=== PATIENT | female | born 1965 | race Caucasian/White ===

== ENCOUNTER → 2017-06-11 15:08 | Outpatient (CLI) | payer BC, SELFPAY ==
--- NOTE | 2017-06-11 15:15 | MM_ITS ---
MM Dig screening mamm BI w/CAD CAD Screening COMPARISON: Digital mammograms 03/11/2016 and follow-up additional views of both breasts to 2016 INDICATION: There is no personal or family history of breast cancer TECHNIQUE: Standard CC and MLO images were obtained. R2 CAD reviewed. FINDINGS: There is a diffusely dense and heterogenic parenchymal pattern lessening the sensitivity of mammography. The findings are fairly symmetrical bilaterally. There is no suspicious lesion in either breast and no suspicious microcalcifications. Ultrasound was performed in both breast which will be described in the ultrasound report. However no additional workup was indicated following ultrasound evaluation. IMPRESSION: Dense and heterogenic parenchymal pattern consistent with diffuse fibrocystic change BI-RADS Category: 1 Negative RECOMMENDED FOLLOW-UP: 1YR - 1 YEAR FOLLOW-UP (A letter has been sent to the patient regarding results of the study.)
--- NOTE | 2017-06-11 15:16 | US_ITS ---
US breast RT complete COMPARISON: Ultrasound right breast 04/10/2016 HISTORY: Follow-up cystic lesions and ductal hyperplasia TECHNIQUE: Ultrasound right breast FINDINGS: There is a diffusely echogenic parenchymal pattern consistent with fibrocystic change. There are 2 small cysts one at the 12:00 position near the nipple the other 2:00 position in the nipple both 4 to 5 mm in size. Is a large benign-appearing cystic lesion 8:00 position in the nipple measuring 0.9 by point for a 0.9 cm. There is additional benign-appearing cystic lesion at the 9:00 and 10:00 positions both less than a centimeter in size. There is moderate ductal hyperplasia noted. There is no suspicious solid lesions seen. IMPRESSION: Basically stable also benign-appearing cyst in a background of fibrocystic change. I feel no additional evaluation is indicated.
--- NOTE | 2017-06-11 15:16 | US_ITS ---
US breast LT complete COMPARISON: Ultrasound left breast to 2016 HISTORY: Follow-up cystic lesions seen on previous ultrasound TECHNIQUE: Ultrasound left breast FINDINGS: There are 2 benign-appearing cystic lesions one at the 12:00 position the other at 3:00 position both somewhat near the nipple. The 12:00 lesion measures 0.7 x 0.8 x 0.4 cm and the 3:00 cystic lesion measures 0.7 x 0.9 x 1.1 cm .There is a hypoechoic but solid lesion at 11:00 position near the nipple measuring 0.7 x 0.6 x 0.5 cm. Again Noted are dilated ducts in the subareolar region. There is a normal-appearing node in the axilla. IMPRESSION: Benign-appearing cystic lesions as noted along with what appears be a small solid lesion likely a fibroadenoma along with mild stable ductal hyperplasia and I feel no additional evaluation is indicated.
== END ==
PROVIDERS: Family Provider Family Medicine; PCP Family Medicine; Visit Provider Family Medicine
DX: R92.8 Other abnormal and inconclusive findings on diagnostic imaging of breast (principal); N60.19 Diffuse cystic mastopathy of unspecified breast
CPT/HCPCS: 76641; 77067

== ENCOUNTER → 2018-06-13 15:21 | Outpatient (CLI) | payer BC, SELFPAY ==
--- NOTE | 2018-06-13 | MM_ITS ---
MM Dig screening mamm BI w/CAD CAD Screening COMPARISON: Digital mammograms with CAD 06/11/2017 and 03/11/2016 INDICATION: There is no personal or family history of breast cancer TECHNIQUE: Standard CC and MLO images were obtained. R2 CAD reviewed. FINDINGS: Again noted is a markedly dense and diffusely heterogenic parenchymal pattern definitely lessening the sensitivity of mammography. The findings are fairly symmetrical bilaterally. There are few benign-appearing microcalcifications in each breast. There is no suspicious lesion and there are no suspicious microcalcifications. IMPRESSION: Stable exam with markedly dense parenchymal pattern and no suspicious lesion seen BI-RADS Category: 2 Benign Finding(s) RECOMMENDED FOLLOW-UP: 1YR - 1 YEAR FOLLOW-UP (A letter has been sent to the patient regarding results of the study.)
== END ==
PROVIDERS: PCP Family Medicine; Visit Provider Family Medicine
DX: N60.19 Diffuse cystic mastopathy of unspecified breast (principal)
CPT/HCPCS: 77067

== ENCOUNTER → 2019-06-16 08:56 | Outpatient (CLI) | payer BC, SELFPAY ==
--- NOTE | 2019-06-16 08:59 | MM_ITS ---
PROCEDURE: MM DIG SCREENING MAMM BI W/CAD Digital Breast Tomosynthesis Included CLINICAL INDICATION: SCREENING There is no personal or family history of breast cancer. COMPARISON: DMDBAV DIG MAMM-DX STEPHANE W/AVWS W/CAD from 04/10/2016 [facility] MM Dig screening mamm BI w/CAD from 06/11/2017 [facility] MM Dig screening mamm BI w/CAD from 06/13/2018 TECHNIQUE: Standard CC and MLO images and 3D Tomosynthesis was obtained. R2 CAD reviewed. FINDINGS: There is a diffusely dense and somewhat heterogenic parenchymal pattern as noted previously. Sulaiman images are most helpful with this type of breast parenchyma and I see no suspicious lesion in either breast. There couple of benign-appearing microcalcifications in each breast. There are no suspicious microcalcifications IMPRESSION: Stable exam with prominent diffuse density bilaterally BI-RAD Category: 2 Benign Finding(s) FOLLOW-UP: 1YR 1 Year Follow-up (A letter has been sent to the patient regarding results of the study.) Dictated by: Dr. Rosendo Montes MD 06/19/2019 11:[address] Rosendo Montes MD in [place] 06/19/2019 11:59
== END ==
PROVIDERS: PCP Family Medicine; Visit Provider Family Medicine
DX: Z12.31 Encounter for screening mammogram for malignant neoplasm of breast (principal)
CPT/HCPCS: 77063; 77067

== ENCOUNTER → 2021-01-24 06:52 | Outpatient (CLI) | payer BC, SELFPAY ==
[2021-01-24 07:54] LABS: Chol/HDL Ratio 2.1 (1-3.5); Cholesterol 154 mg/dl (140-200); HDL Cholesterol 73 mg/dl (40-60); Triglycerides 53 mg/dl (30-150); VLDL Cholesterol 11 mg/dL (0-40)
[2021-01-24 08:05] LABS: Direct LDL Cholesterol 71.58 mg/dL (100-129)
== END ==
PROVIDERS: Visit Provider Family Medicine
DX: E78.5 Hyperlipidemia, unspecified (principal)
CPT/HCPCS: 36415; 80061

== ENCOUNTER → 2021-09-05 09:56 | Outpatient (CLI) | payer BC, SELFPAY | LOC: RT 09:57 | PROVIDERS: PCP Family Medicine; Visit Provider Family Medicine | DX: R01.1 Cardiac murmur, unspecified (principal) | CPT/HCPCS: 93306 ==

== ENCOUNTER → 2022-04-30 12:34 | Outpatient (CLI) | payer BC, SELFPAY ==
--- NOTE | 2022-04-30 12:37 | MM_ITS ---
PROCEDURE INFORMATION: Exam: MG Bilateral Screening 3D Mammography Exam date and time: 04/30/2022 12:50 PM Age: 56 years old Clinical indication: Screening examination TECHNIQUE: Imaging protocol: Bilateral Screening tomosynthesis and 2D mammography including computer-aided detection (CAD) when performed. COMPARISON: 1. MG MM DIG SCREENING MAMM BI W/CAD 06/16/2019 9:08 AM 2. MG [facility] MM Dig screening mamm BI w/CAD 06/13/2018 3:45 PM FINDINGS: MAMMOGRAPHY: Breast composition: The breasts are heterogeneously dense, which may obscure small masses. Mass: None. Architectural distortion: None. Calcifications: No suspicious calcifications. Asymmetric density: None. Skin thickening: None. Axillary adenopathy: None. IMPRESSION: No mammographic evidence of malignancy. Annual screening is recommended unless otherwise clinically indicated. ASSESSMENT: BI-RADS Category 1: Negative
== END ==
PROVIDERS: PCP Family Medicine; Visit Provider Family Medicine
DX: Z12.31 Encounter for screening mammogram for malignant neoplasm of breast (principal)
CPT/HCPCS: 77063; 77067

== ENCOUNTER 2023-05-15 07:20 | Outpatient (CLI) | payer BC, SELFPAY ==
[2023-05-15 08:03] LABS: Alanine Aminotransferase 15 U/L (12-78); Albumin Level 4.6 g/dl (3.5-5.0); Albumin/Globulin Ratio 1.7 (1.1-1.8); Alkaline Phosphatase 110 U/L (38-126); Anion Gap 11.7 mEq/L (5-15); Aspartate Amino Transferase 27 U/L (14-36); Bilirubin,Total 0.5 mg/dl (0.2-1.3); Calcium 9.4 mg/dl (8.4-10.2); Carbon Dioxide 26 mmol/L (22.0-30.0); Chloride 108 mmol/L (98-107); Chol/HDL Ratio 3.5 (1-3.5); Cholesterol 188 mg/dl (140-200); Globulin 2.7 g/dL (1.3-3.2); Glucose 108 mg/dl (74-100); HDL Cholesterol 54 mg/dl (40-60); Potassium 4.7 mmoL/L (3.5-5.1); Sodium 141 mmol/L (136-145); Total Protein,Serum 7.3 g/dl (6.3-8.2); Triglycerides 53 mg/dl (30-150); VLDL Cholesterol 11 mg/dL (0-40)
[2023-05-15 08:07] LABS: Blood Urea Nitrogen 24 mg/dl (7-17)
[2023-05-15 08:08] LABS: Estimated Glomerular Filt Rate 104 ml/min (>60); GFR (African American) 126 ML/MIN (>60)
[2023-05-15 08:14] LABS: Direct LDL Cholesterol 95.11 mg/dL (100-129)
== END 2023-05-15 23:59 ==
LOC: LAB 07:22
PROVIDERS: PCP Family Medicine; Visit Provider Family Medicine
DX: M79.7 Fibromyalgia (principal); Z72.0 Tobacco use; Z79.899 Other long term (current) drug therapy
CPT/HCPCS: 36415; 80053; 80061

== ENCOUNTER 2023-05-28 12:57 | Outpatient (CLI) | payer BC, SELFPAY ==
--- NOTE | 2023-05-28 13:01 | MM_ITS ---
PROCEDURE INFORMATION: Exam: MG Bilateral Screening 3D Mammography Exam date and time: 05/28/2023 1:17 PM Age: 57 years old Clinical indication: Screening. No family history of breast cancer. TECHNIQUE: Imaging protocol: Bilateral Screening tomosynthesis and 2D mammography including computer-aided detection (CAD) when performed. COMPARISON: 1. MG MM DIG SCREENING MAMM BI W/CAD 04/30/2022 12:50 PM 2. MG MM DIG SCREENING MAMM BI W/CAD 06/16/2019 9:08 AM 3. MG [facility] MM Dig screening mamm BI w/CAD 06/13/2018 3:45 PM 4. MG [facility] MM Dig screening mamm BI w/CAD 06/11/2017 3:59 PM FINDINGS: MAMMOGRAPHY: Breast composition: The breasts are heterogeneously dense, which may obscure small masses. Mass: Questionable 0.7 cm mass in the right outer breast anterior to middle 3rd, 3-4 cm from the nipple, probably in the upper breast (CC 27350/23 and MLO 1718/13) and 0.5 cm mass in the left outer breast posterior 3rd, 8 cm from the nipple, probably in the upper breast (CC 1026/6 and MLO 1372/14). Architectural distortion: None. Calcifications: No suspicious calcifications. Asymmetric density: None. Skin thickening: None. Axillary adenopathy: None. IMPRESSION: Patient will be recalled for bilateral diagnostic mammography with spot compression in CC and MLO and bilateral sonography for further evaluation of questionable bilateral masses. ASSESSMENT: BI-RADS Category 0: Incomplete: Need Additional Imaging Evaluation and/or Prior Mammograms for Comparison
--- NOTE | 2023-05-28 13:01 | CT_ITS ---
FINAL REPORT TECHNIQUE: Axial images were obtained from the lung apex to the mid abdomen by computed tomography. Low-dose protocol was utilized. CLINICAL HISTORY: H/O TOBACCO USE smokes 1 ppd for 40 years COMPARISON: None FINDINGS: DOSE: CTDIvol: 2.9 mGy, DLP: 108.38 mGy*cm There is no axillary adenopathy. There is no hilar or mediastinal adenopathy. The heart is proper size. There is no pericardial or pleural effusion. Limited images of the upper abdomen are unremarkable. There is a left midlung nodule on image 46 of series 3 measuring 4 mm, favor to represent a intrafissural lymph node. The lungs are otherwise clear. IMPRESSION: No suspicious nodule identified. 4 mm left midlung nodule, favor intrafissural lymph node. LUNG RADS CATEGORY 2 RECOMMENDATION: 12 month LDCT follow up Reviewed, Interpreted and Dictated by Aleyda Espino MD Transcribed by ASMITA Bolivar Authenticated and . [facility]
== END 2023-05-28 23:59 ==
LOC: RAD 12:58
PROVIDERS: PCP Family Medicine; Visit Provider Family Medicine
DX: N60.19 Diffuse cystic mastopathy of unspecified breast (principal); Z72.0 Tobacco use
CPT/HCPCS: 71271; 77063; 77067

== ENCOUNTER 2023-06-16 14:06 | Outpatient (CLI) | payer BC, SELFPAY ==
--- NOTE | 2023-06-16 14:13 | MM_ITS ---
PROCEDURE INFORMATION: Exam: US Left Breast, Complete US Right Breast, Complete MG Bilateral Diagnostic Breast Tomosynthesis Exam date and time: 06/16/2023 3:38 PM Age: 57 years old Clinical indication: Callback for questionable 0.7 cm right outer anterior breast and 0.5 cm left outer posterior breast mass identified on screening mammogram . 05/28/2023 TECHNIQUE: Imaging protocol: Complete ultrasound of all four quadrants of the left breast and the retroareolar regions, including ultrasound of the axilla when performed. Complete ultrasound of all four quadrants of the right breast and the retroareolar regions, including ultrasound of the axilla when performed. Bilateral Diagnostic tomosynthesis and 2D mammography including computer-aided detection (CAD) when performed. Unilateral or bilateral exam. COMPARISON: BREASTLT US breast LT complete 06/11/2017 3:37 PM FINDINGS: MAMMOGRAPHY: Breast composition: The breast is heterogeneously dense, which may obscure small masses. Breast mammogram findings: There are several bilateral stable mostly obscured masses. The areas of interest described on 05/28/2023 do not demonstrate persistent mass, or distortion on spot compression diagnostic views. No new mass, architectural distortion, or suspicious calcifications have developed to suggest malignancy. No axillary adenopathy. ULTRASOUND: Breast ultrasound findings: Heterogeneously hypoechoic horizontal mostly circumscribed morphologically similar appearing masses are present bilaterally as follows: Right: 0.6 cm 12 o'clock right 3 cm from nipple, 0.3 cm 1 o'clock right 3 cm from the nipple, 0.5 cm 3 o'clock right 3 cm from the nipple, 0.6 cm 6 o'clock right 4 cm from the nipple, 1.1 cm 8 o'clock right 5 cm from the nipple, 0.8 cm 9 o'clock right 7 cm from the nipple, 0.6 cm right 10 o'clock 5 cm from nipple, 0.4 cm right 11 o'clock 5 cm from nipple, 0.5 cm right retroareolar Left: 0.6 cm left 2 o'clock 5 cm from the nipple, 0.3 cm left 4 o'clock 4 cm from the nipple, 0.7 cm left 9 o'clock 2 cm from the nipple, 0.3 cm left 10 o'clock 3 cm from the nipple, 0.4 cm left 12 o'clock 3 cm from the nipple, 0.4 cm left 12 o'clock 2 cm from the nipple, 0.4 cm 3 o'clock periareolar IMPRESSION: Almost innumerable bilateral morphologically similar appearing subcentimeter masses are present as described above without dominant or morphologically suspicious mass. This limits assessment for detection of a small developing malignancy. No mammographic or sonographic evidence of malignancy. Recommend annual screening mammography unless otherwise clinically indicated. ASSESSMENT: BI-RADS category 2: Benign
== END 2023-06-16 23:59 | disposition home or self-care (01) ==
LOC: RAD 14:07
PROVIDERS: PCP Family Medicine; Visit Provider Family Medicine
DX: R92.8 Other abnormal and inconclusive findings on diagnostic imaging of breast (principal)
CPT/HCPCS: 76641; 77062; 77066; G0279

== ENCOUNTER 2023-11-15 17:00 | Outpatient (CLI) | payer BC, SELFPAY ==
--- OUTSIDE RECORDS SUMMARY | 2023-11-15 17:03 | XMS_ITS ---
[facility] Address [address] [place] [id number] Care Team Providers Care Lpn Private Duty Name Role Phone Ramana Hager Primary Care Provider ALLERGIES No Known Allergies REASON FOR VISIT 6 Month Check Up, Needs labs MEDICATIONS Medication SIG (Take, Route, Fr equency, Duration) Notes Start Date End Date Status Savella 50 MG 1 tab(s) orally twice a day Active Sulindac 200 MG 1 tab(s) orally 2 times a day Active VITAL SIGNS Weight 171.6 lbs 11/11/2023 Blood pressure systolic 120 mm Hg 11/11/19 24 Blood pressure diastolic 80 mm Hg 024 Heart Rate 82 /min 11/11/2023 Height 69 in 11/11/2023 BMI 25.34 kg/m2 11/11/2023 Encounters Encounter Location Date Provider Diagnosis [facility] [address] [place] [id number] 11/11/2023 Ramana Hager Fibromyalgia M79.7 ; Abnormal mammogram R92.8 ; Fibrocystic breast disease, unspecified laterality N60.19 and Right hip pain M25.551 ASSESSMENTS Encounter Date Diagnosis Assessment Notes Treatment Notes Treatment Clinical Notes 11/11/2023 Fibromyalgia (ICD-10 - M79.7) continue current therapy 11/11/2023 Abnormal mammogram (ICD-10 - R92.8) 11/11/2023 Fibrocystic breast disease, unspecified laterality (ICD-10 - N60.19) 11/11/2023 Right hip pain (ICD-10 - M25.551) PLAN OF TREATMENT Treatment Notes Assessment Notes Fibromyalgia continue current the rapy Pending Test Test Name Order Date X ray : Hip, right 11/11/2023 Next Appt Details Follow Up: 2 Months, Reason: Provider Name:Ramana Leo er, 01/13/2024 03:30:00 PM, [address] [facility], [address], [place], [place], [phone], Progress Notes * Examination Category Sub-Category Detail Notes General Examination HEENT: unremarkable Heart: RSR Lungs: [...]
--- OUTSIDE RECORDS SUMMARY | 2023-11-15 17:03 | XMS_ITS ---
Author Organization [facility] Address 1210 [facility] 36 [facility] [address] [place] [id number] Care Team Providers Care Sheet Rock Layer Name Role Phone Ramana Hager Primary Care Provider REASON FOR VISIT Test Results* Encounters Encounter Location Date Provider Diagnosis [facility] [address] [facility] 36 [facility] [address] [place] [phone] 05/17/2023 Ramana Hager PLAN OF TREATMENT Next Appt Details Provider Name:Ramana Leo er, 01/13/2024 03:30:00 PM, [address] [facility] 36 [facility], [address], [place], [phone],
--- OUTSIDE RECORDS SUMMARY | 2023-11-15 17:03 | XMS_ITS ---
Author Organization [facility] Address [address] [place] [address] [address] [place] [phone] Care Team Providers Care Recruiting Consultant Name Role Phone Ramana Hager Primary Care Provider [phone] RESULTS Component Value Reference Range Notes Ultrasound : Breasts, bilate ral Reviewed date:11/12/2023 01:00:20 PM Interpretation:benign, annual f/u mamm Performing Lab: Notes/Report: benign, annual f/u mamm Ultrasound : Breasts, bilate ral Reviewed date:11/12/2023 01:00:20 PM Interpretation:benign, annual f/u mamm Performing Lab: Notes/Report: benign, annual f/u mamm Mammogram, Bilateral Diagnos tic Reviewed date:11/12/2023 09:43:44 AM Interpretation:see US results Performing Lab: Notes/Report: see US results REASON FOR VISIT Test results Encounters Encounter Location Date Provider Diagnosis [facility] [address] [place] [phone] 06/01/2023 Ramana Hager Abnormal mammogram R92.8 ASSESSMENTS Encounter Date Diagnosis Assessment Notes Treatment Notes Treatment Clinical Notes 06/01/2023 Abnormal mammogram (ICD-10 - R92.8) PLAN OF TREATMENT Next Appt Details Provider Name:Ramana Leo er, 01/13/2024 03:30:00 PM, [address] [facility] 36 [facility], [address], [place], [phone],
--- OUTSIDE RECORDS SUMMARY | 2023-11-15 17:04 | XMS_ITS | Patient Health Record ---
[facility] Address [address] [place] [id number] Care Team Providers Care Tip Stitcher Name Role Phone Ramana Hager Primary Care Provider ALLERGIES No Known Allergies RESULTS Component Value Reference Range Notes H-Lipid Panel Reviewed date:05/17/2023 09:01:25 AM Interpretation:Dldl 95.11 Performing Lab: Notes/Report: Patient Fasting? Y TRIG 53 30-150 mg/dl CHOL 188 140-200 mg/dl DLDL 95.11 100-129 mg/dL VLDL 11 0-40 mg/dL HDL 54 40-60 mg/dl CHLHDL 3.5 1-3.5 H-CMP Reviewed date:05/17/2023 09:01:25 AM Interpretation:Cl 108, Bun 24, Glu 108 Performing Lab: Notes/Report: NA 141 136-145 mmol/L K 4.7 3.5-5.1 mmoL/L CL 108 98-107 mmol/L CO2 26 22.0-30.0 mmol/L GAP 11.7 5-15 mEq/L BUN 24 7-17 mg/dl CREATT 0.60 0.52-1.04 mg/dl GFRAA 126 >60 ML/MIN EGFR 104 >60 ml/min GLU 108 74-100 mg/dl CA 9.4 8.4-10.2 mg/dl BILIT 0.5 0.2-1.3 mg/dl AST 27 14-36 U/L ALT 15 12-78 U/L TP 7.3 6.3-8.2 g/dl ALB 4.6 3.5-5.0 g/dl GLOB 2.7 1.3-3.2 g/dL AGRATIO 1.7 1.1-1.8 ALP 110 38-126 U/L Ultrasound : Breasts, bilate ral Reviewed date:11/12/2023 01:00:20 PM Interpretation:benign, annual f/u mamm Performing Lab: Notes/Report: benign, annual f/u mamm Ultrasound : Breasts, bilate ral Reviewed date:11/12/2023 01:00:20 PM Interpretation:benign, annual f/u mamm Performing Lab: Notes/Report: benign, annual f/u mamm Mammogram, Bilateral Diagnos tic Reviewed date:11/12/2023 09:43:44 AM Interpretation:see US results Performing Lab: Notes/Report: see US results CT Scan : Chest, low dose Reviewed date:05/31/2023 10:38:24 AM Interpretation:nothing suspicious, annual f/u Performing Lab: Notes/Report: nothing suspicious, annual f/u Mammogram Reviewed date:06/01/2023 11:04:43 AM Interpretation:needs additional imaging Performing Lab: Notes/Report: needs additional imaging result needs additional imaging lipid profile Reviewed date:05/28/2023 12:59:41 PM Interpretation: Performing Lab: Notes/Report: CMP Reviewed date:05/28/2023 12:59:29 PM Interpretation: Performing Lab: Notes/Report: CALCIUM glucose bun/creat sodium potassium chloride CO2 SGOT SGPT alk phos Total Protein Albumin total bili GGT LDH prostate specific antigen amylase lipase total cholesterol triglycerides LDL HDL risk factor TSH T4 T3 T7 FTI glycohemaglobin(HgA1C) WBC Hgb Hct RBC MCV MCH MCHC Gran % Lymph% monocytes % PLATLETS CPK B12 CKMB folic acid lithium level Troponin I magnesium phosphorus DEBBIE RA Sed rate uric acid ASO BNP Iron REASON FOR REFERRAL No Information MEDICATIONS Medication SIG (Take, Route, Fr equency, Duration) Notes Start Date End Date Status Savella 50 MG Take 1 tablet by twice daily for 90 Active Sulindac 200 MG 1 tab(s) orally 2 times a day Active IMMUNIZATIONS Vaccine Route Administration Date Status Comme nts COVID 19 Moderna Unknown 06/12/2020 Administered COVID 19 Moderna Unknown 2020 Administered COVID 19 Moderna Unknown 01/22/2021 Administered Hepatitis A (adult) Unknown 11/04/2017 Administered Hepatitis A (adult) IM Intramuscular 06/13/2018 Administer ed Shingrix IM Intramuscular 04/08/2020 Administered Tetanus Tdap-Adacel (over 7yrs) IM Intramuscular 08/01/2018 Administered SOCIAL HISTORY Sex Assigned At : Social History Observation Description Sex Assigned At Unknown PROBLEMS Problem Type ICD Code Onset Dates Problem Status W/U Status Risk SNOMED Code Notes Problem Abnormal mammogram (R92.8) Active confirmed 414068442 Problem Fibromyalgia (M79.7) Active confirmed 501988313 Problem Onychomycosis (B35.1) Active confirmed 356632668 Problem Hyperlipidemia, unspecified hyperlipidemia type (E78.5) Active confirmed 10014463 Problem Arthralgia, unspecified joint (M25.50) Active confirmed 45521635 Problem Fibrocystic breast disease, unspecified laterality (N60.19) Active confirmed 62121637 VITAL SIGNS Heart Rate 82 /min 11/11/2023 Blood pressure diastolic 80 mm Hg 11/11/2023 Height 69 in 11/11/2023 Blood pressure systolic 120 mm Hg 11/11/2023 Weight 171.6 lbs 11/11/2023 BMI 25.34 kg/m2 11/11/2023 Encounters Encounter Location Date Provider Diagnosis [facility] [address] [facility] [address] [place], [place] [id number] 05/10/2023 Ramana Hager Fibromyalgia M79.7 ; Fibrocystic breast disease (FCBD), unspecified laterality N60.19 and Tobacco use Z72.0 [facility] [address] [facility] [address] [facility] [place], [place] [id number] 05/17/2023 Ramana Hager [facility] [address] [facility] [address] [place], [place] [id number] 06/01/2023 Ramana Hager Abnormal mammogram R92.8 [facility] [address] [facility] [address] [place], [place] [id number] 11/11/2023 Ramana Hager Fibromyalgia M79.7 ; Abnormal mammogram R92.8 ; Fibrocystic breast disease, unspecified laterality N60.19 and Right hip pain M25.551 ASSESSMENTS Encounter Date Diagnosis Assessment Notes Treatment Notes Treatment Clinical Notes 05/10/2023 Fibromyalgia (ICD-10 - M79.7) 05/10/2023 Fibrocystic breast disease (FCBD), unspecified laterality (ICD-10 - N60.19) 06/01/2023 Abnormal mammogram (ICD-10 - R92.8) 11/11/2023 Abnormal mammogram (ICD-10 - R92.8) 11/11/2023 Fibromyalgia (ICD-10 - M79.7) continue current therapy 11/11/2023 Fibrocystic breast disease, unspecified laterality (ICD-10 - N60.19) 05/10/2023 Tobacco use (ICD-10 - Z72.0) 11/11/2023 Right hip pain (ICD-10 - M25.551) PLAN OF TREATMENT Pending Test Test Name Order Date X ray : Hip, right 11/11/2023 Next Appt Details Provider Name:Ramana Yanez Ahmet er, 01/13/2024 03:30:00 PM, [address], [address], [place], [place], [id number], Insurance Providers Payer Name Payer Address Payer Phone Subscriber Number Group Number Insured Name Patient Relationship to Insured Coverage Start Date Coverage End Date [employer] [address] [place] [address] [id number] 2SL SAVANNAH GARCIA Self - patient is the insured MEDICAL (GENERAL) HISTORY Medical History History ICD Code Hepatitis A Vaccine x2 Spring 2018 COVID 19 Vaccine, Moderna May, 202 1 Surgical History Surgery Date(Month/Year) , twin girls 1988 appendectomy 1974 Hysterectomy 2005
--- NOTE | 2023-11-15 17:17 | XR_ITS ---
FINAL REPORT CLINICAL HISTORY: RIGHT HIP PAIN COMPARISON: None FINDINGS: RIGHT HIP Two views of the right hip, with an AP view of the pelvis, demonstrate no acute fracture or dislocation. The joint spaces appear normal. The visualized bony structures are well aligned. No soft tissue abnormality is seen. IMPRESSION: No acute bony abnormality. Reviewed, Interpreted and Dictated by Rio Tomlinson MD Transcribed by Soo Han Authenticated and [facility]
== END 2023-11-15 23:59 | disposition home or self-care (01) ==
LOC: RAD 17:02
PROVIDERS: PCP Family Medicine; Visit Provider Family Medicine
DX: M25.551 Pain in right hip (principal)
CPT/HCPCS: 73502

== ENCOUNTER 2024-08-11 08:26 | Outpatient (CLI) | payer BC, SELFPAY ==
--- OUTSIDE RECORDS SUMMARY | 2023-11-11 11:30 | XMS_ITS ---
Author Organization [facility] Address 1210 [facility] [address] [place] [phone] Care Team Providers Care Threat Analyst Name Role Phone Ramana aHger Primary Care Provider Allergies No Known Allergies [...] Encounter Location Date Provider Diagnosis Barry 1210 [facility] [address] [place] [id number] 11/11/2023 Ramana Hager Fibromyalgia M79.7 ; Abnormal [...] 2 Months, Reason: Provider Name:Ramana Leo er, 08/28/2024 10:00:00 AM, [address], [address], [place], [place], [phone], Progress Notes * CHUNG GARCIAOB:1965 (59 yo F)Acc No.[id number]:11/11/2023 Progress Notes Patient: SAVANNAH CARRILLO Provider: Ramana Hager M.D. :1965 A ge:58 Y S ex:Female Date:11/11/2023 Address:[address] [place] [address], [facility] Subjective: * Chief Complaints: * 1 . 6 Month Check Up. 2. Needs labs. * HPI: P ain: The patient is here for a check up on Fibromyalgia. Pt states the fibromyalgia is about the same. Pt states she is needing refills sent to [facility] in [place]. Pt states she started about 2 months [...] G eneral Examination: General Appearance: N AD. HEENT: u nremarkable. Oral cavity: n o lesions, mucosa moist and WNL, no erythema. Neck: s upple, no lymphadenopathy. Chest: n ormal shape and expansion. Heart: R SR. Lungs: c lear to auscultation. Abdomen: soft and nontender. Neurologic Exam: I ntact, gait normal. Skin: n ormal, no rash. Peripheral pulses: n ormal . Back: normal, mild dorsal kyphosis. Extremities: n o leg edema, full ROM of [...] egative * Follow Up: 2 Months * Billing Information: * Visit Code: 78223 Office Visit, Est Pt., Level 4. * Procedure Codes: * Electronic signature of Ramana Hager MD on 08/11/2024 at 08:29 AM EDT Sign off status: Pending * Provider: Ramana Hager M.D. Date: 0 11/11/2023 Generated for Reynaldo pham/Jase/eTransmitting on: 0 08/11/2024 08:29 AM EDT History and Physical Notes * Examination Category [...]
--- OUTSIDE RECORDS SUMMARY | 2024-01-13 11:30 | XMS_ITS ---
Author Organization [facility]-[place] Address [address] [facility] [address] [place] [id number] Care Team Providers Care Fire Hydrant Operator Name Role Phone Ramana Hager Primary Care Provider [phone] Allergies No Known Allergies Results Component Value Reference Range Notes P-Comprehensive Metabolic Pa kristi (CMP) Reviewed date:01/21/2024 02:14:52 PM Interpretation:alk phos 135 Performing Lab: Notes/Report: Test performed by [employer] [facility] , [address], [place] [address] Jacky Machado MD, Resource Management Specialist CLIA: [id number] Sodium 141 135-145 mmol/L Potassium 4.7 3.5-5.3 [...] Take 1 tablet by deniz th twice daily for 90 Active Sulindac 200 MG 1 tab(s) orally 2 ti mes a day for 90 days Active Vital Signs Blood pressure systolic 130 mm Hg 01/13/20 24 Blood pressure diastolic 84 mm Hg 024 Heart Rate 80 /min 01/13/2024 Height 69 in 01/13/2024 Weight 174.8 lbs 01/13/2024 BMI 25.81 kg/m2 01/13/2024 Encounters Encounter Location Date Provider Diagnosis [facility] [address] [facility] [address] [place] [id number] 01/13/2024 Ramana Hager Fibromyalgia M79.7 a nd Hyperlipidemia, unspecified hyperlipidemia type E78.5 Assessments Encounter Date Diagnosis (ICD Code) Assessment Notes Treatment Notes Treatment Clinical Notes Section Notes 01/13/2024 Fibromyalgia (ICD-10 - M79.7) 01/13/2024 Hyperlipidemia, unspecified hyperlipidemia type (ICD-10 - E78.5) Plan Of Treatment Medication Medication Name Sig Start Date Stop Date Notes Savella 50 MG Take 1 tablet by mouth twice daily for 90 Sulindac 200 MG 1 tab(s) orally 2 times a day for 90 days Next Appt Details Follow Up: 5 M, Reason: Provider Name:Ramana Leo er, 08/28/2024 10:00:00 AM, [address] [facility] [address] [facility], [address], [place], [id number], Progress Notes * CHUNG GARCIAOB:1965 (59 yo F)Acc No.[id number]:01/13/2024 Progress Notes Patient: SAVANNAH CARRILLO Provider: Ramana Haegr M.D. :1965 A ge:58 Y S ex:Female Date:01/13/2024 Address:[address] [place] [address] [id number] Subjective: * Chief Complaints: * 1 . 2 month f/u. 2. Needs labs & flu vaccine. * HPI: P ain: The pt is here for a check up on the Fibromyalgia. Pt states she doing about the same. Pt rates her pain about 5/10 today. Pt states she is needing refills sent to [facility] in [place]. * ROS: D ERMATOLOGY: no R nic. [...] encounter * Follow Up: 5 M * Billing Information: * Visit Code: 16130 Office Visit, Est Pt., Level 4. * Procedure Codes: * Electronic signature of Ramana Hager MD on 08/11/2024 at 08:29 AM EDT Sign off status: Pending * Provider: Ramana Hager M.D. Date: 03/14/2023 Generated for Reynaldo pham/Jase/Gloriaitting on: 0 08/11/2024 08:29 AM EDT History [...]
--- NOTE | 2024-08-11 08:30 | MM_ITS ---
PROCEDURE INFORMATION: Exam: MG Bilateral Screening 3D Mammography Exam date and time: 08/11/2024 8:36 AM Age: 59 years old Clinical indication: Screening mammogram TECHNIQUE: Imaging protocol: Bilateral Screening tomosynthesis and 2D mammography including computer-aided detection (CAD) when performed. COMPARISON: 1. MG MM DIG MAMM BI DX W/CAD 06/16/2023 2:04 PM 2. MG MM DIG SCREENING MAMM BI W/CAD 05/28/2023 1:17 PM 3. MG MM DIG SCREENING MAMM BI W/CAD 04/30/2022 12:50 PM 4. MG MM DIG SCREENING MAMM BI W/CAD 06/16/2019 9:08 AM FINDINGS: MAMMOGRAPHY: Breast composition: The breast is heterogeneously dense, which may obscure small masses. Mass: Stable benign-appearing subcentimeter nodules are present in the right breast. No new or morphologically suspicious nodule has developed to suggest malignancy. Architectural distortion: No new or suspicious architectural distortion. Calcifications: No new or suspicious calcifications are present Asymmetric density: No new or suspicious asymmetric density is present Skin thickening: None. Axillary adenopathy: None. IMPRESSION: No mammographic evidence of malignancy. Recommend annual screening mammography unless otherwise clinically indicated. ASSESSMENT: BI-RADS category 2: Benign.
--- OUTSIDE RECORDS SUMMARY | 2024-08-11 08:30 | XMS_ITS | Patient Health Record ---
Author Organization [facility] Address [address] [place] [id number] Care Team Providers Care Logistics System Engineer Name Role Phone Ramana Hager Primary Care Provider [phone] Allergies No Known Allergies Results Component Value Reference Range Notes X ray : Hip, right Reviewed date:11/17/2023 01:22:02 PM Interpretation:Negative Performing Lab: Notes/Report: Negative P-Comprehensive Metabolic Pa kristi (CMP) Reviewed date:01/21/2024 02:14:52 PM Interpretation:alk phos 135 Performing Lab: Notes/Report: Test performed by [facility] [address] [place] [address] , [address], [place] [address] Jacky Machado MD, Business Information Manager CLIA: [id number] Sodium 141 135-145 mmol/L Potassium 4.7 3.5-5.3 [...] 0.2 <0.2-1.2 mg/dL A/G Ratio 2.1 1.1-2.5 Reason For Referral No Information Medications Medication SIG (Take, Route, Fr equency, Duration) Notes Start Date End Date Status Savella 50 MG Take 1 tablet by deniz th twice daily for 90 Active Sulindac 200 MG 1 tab(s) orally 2 ti mes a day for 90 days Active Immunizations Vaccine Route Administration Date Status Comme nts COVID 19 Moderna Unknown 06/12/2020 Administered COVID 19 Moderna Unknown 2020 Administered COVID 19 Moderna Unknown 01/22/2021 Administered Hepatitis A (adult) Unknown 11/04/2017 Administered Hepatitis A (adult) IM Intramuscular 06/13/2018 Administer ed Shingrix IM Intramuscular 04/08/2020 Administered Tetanus Tdap-Adacel (over 7yrs) IM Intramuscular 08/01/2018 Administered Problems Problem Type SNOMED Code ICD Code Onset Dates Problem Status W/U Status Risk Notes Problem 947340206 Abnormal mammogr am (R92.8) Active confirmed Problem 758120919 Fibromyalgia (M79.7) Active confirmed Problem 622958737 Onychomycosis (B35.1) Active confirmed Problem 54016249 Hyperlipidemia, unspecified hyperlipidemia type (E78.5) Active confirmed Problem 05795815 Arthralgia, unspecified joint (M25.50) Active confirmed Problem 11014948 Fibrocystic tristan st disease, unspecified laterality (N60.19) Active confirmed Vital Signs Heart Rate 80 /min 01/13/2024 Blood pressure diastolic 84 mm Hg 01/13/2024 Height 69 in 01/13/2024 Blood pressure systolic 130 mm Hg 01/13/2024 Weight 174.8 lbs 01/13/2024 BMI 25.81 kg/m2 01/13/2024 Encounters Encounter Location Date Provider Diagnosis [facility] [address] [place], [place] [id number] 11/11/2023 Ramana Hager Fibromyalgia M79.7 ; Abnormal mammogram R92.8 ; Fibrocystic breast disease, unspecified laterality N60.19 and Right hip pain M25.551 [facility] [address] [place], [place] [id number] 01/13/2024 Ramana Hager Fibromyalgia M79.7 a nd Hyperlipidemia, unspecified hyperlipidemia type E78.5 [facility] [address] [facility] [address] [facility] [address] [place] [id number] 01/21/2024 Ramana Hager Assessments Encounter Date Diagnosis (ICD Code) Assessment Notes Treatment Notes Treatment Clinical Notes Section Notes 11/11/2023 Abnormal mammogram (ICD-10 - R92.8) 11/11/2023 Fibromyalgia (ICD-10 - M79.7) continue current therapy 01/13/2024 Fibromyalgia (ICD-10 - M79.7) 01/13/2024 Hyperlipidemia, unspecified hyperlipidemia type (ICD-10 - E78.5) 11/11/2023 Fibrocystic breast disease, unspecified laterality (ICD-10 - N60.19) 11/11/2023 Right hip pain (ICD-10 - M25.551) Plan Of Treatment Pending Test Test Name Order Date Mammogram 08/03/2024 Next Appt Details Provider Name:Ramana Leo er, 08/28/2024 10:00:00 AM, [address] [facility] [address] [facility], [address], [place], [id number], Insurance Providers Payer Name Payer Address Payer Phone Subscriber Number Group Number Insured Name Patient Relationship to Insured Coverage Start Date Coverage End Date [employer] [address] [place] [address] [id number] SAVANNAH GARCIA Self - patient is the insured Medical (General) History Medical History History ICD Code Hepatitis A Vaccine x2 Spring 2018 COVID 19 Vaccine, Moderna May, 202 1 Surgical History Surgery Date(Month/Year) , twin girls 1988 appendectomy 1974 Hysterectomy 2005
--- OUTSIDE RECORDS SUMMARY | 2024-08-11 08:30 | XMS_ITS | Clinical Summary ---
Author Organization [facility] Address [address] [phone] Care Team Providers Care Lead Cytogenetic Technologist Name Role Phone Unavailable Primary Care Provider Unavailabl e Social History Tobacco Use Types Packs/Day Years Used Date Smoking Tobacco: Never Assessed Comments Unknown Sex and Gender Information Value Date Recorded Sex Assigned at Not on file Legal Sex Female 12:01 PM EDT Gender Identity Not on file Sexual Orientation Not on file Plan of Treatment Health Maintenance Due Date Last Done Comments [facility]-Depression Screening 1965 [facility]-Infant/Child/Adol SDOH Screenings 1965 [facility]- SDOH Screenings 07/09/1985 [facility]-Adult SDOH Screenings 07/09/1985 [facility]-Hepatitis B Vaccines (1 of 3 - 19+ 3-dose series) 07/09/1986 [facility]-Pap Smear 07/09/1988 [facility]-Cervical Cancer Screening 07/09/1997 [facility]-HPV/Cotest 07/09/1997 CT Colonography 07/09/2012 Colonoscopy 07/09/2012 FIT-DNA 07/09/2012 FIT 07/09/2012 FOBT 07/09/2012 Sigmoidoscopy 07/09/2012 [facility]-Colorectal Cancer Screening 07/09/2012 [facility]-Pneumococcal Vaccine: 50 + Years (1 of 1 - PCV) 07/09/2017 [facility]-Zoster Vaccines (2 of 3) 06/03/2020 04/08/2020 [id number] Vaccine (4 - 2023- season) 2023 01/22/2021, 2020, 06/12/2020 [facility]-Influenza Vaccine (Seaso n Ended) 2024 [facility]-DTaP,Tdap,and Td Vaccine s (2 - Td or Tdap) 08/01/2028 08/01/2018 [facility]-Hepatitis A Vaccines Aged Out 11/04/2017 No longer eligible based on patient's age to complete this topic HPV Vaccines Aged Out No longer eligi ble based on patient's age to complete this topic [facility]-HIB Vaccines Aged Out No longer e ligible based on patient's age to complete this topic [facility]-IPV Vaccines Aged Out No longer e ligible based on patient's age to complete this topic [facility]-Rotavirus Vaccines Aged Out No lo nger eligible based on patient's age to complete this topic Insurance [address], [place] [id number] [place]
== END 2024-08-11 23:59 | disposition home or self-care (01) ==
LOC: RAD 08:27
PROVIDERS: PCP Family Medicine; Visit Provider Family Medicine
DX: Z12.31 Encounter for screening mammogram for malignant neoplasm of breast (principal); N63.10 Unspecified lump in the right breast, unspecified quadrant; R92.333 Mammographic heterogeneous density, bilateral breasts
CPT/HCPCS: 77063; 77067

== ENCOUNTER 2025-01-30 06:34 | Outpatient (CLI) | payer BC, SELFPAY ==
--- OUTSIDE RECORDS SUMMARY | 2025-01-30 06:37 | XMS_ITS | Clinical Summary ---
Author Organization [facility] Address [address] [id number] Care Team Providers Care Picker Packer Name Role Phone Unavailable Primary Care Provider [...] Date Last Done Comments [facility]-Depression Screening 1965 [facility]-/Child/Adol SDOH Screenings 1965 [facility]- SDOH Screenings 07/09/1985 [...] [facility]-Zoster Vaccines (2 of 3) 06/03/2020 04/08/2020 [id number] Vaccine (4 - 2024- season) 2024 01/22/2021, 2020, 06/12/2020 [facility]-Influenza Vaccine (#1) 2024 [facility]-DTaP,Tdap,and Td Vaccine s (2 - [...] to complete this topic Insurance [address] [id number] [place]
--- NOTE | 2025-01-30 06:43 | CT_ITS ---
FINAL REPORT TECHNIQUE: Thin section axial images were obtained through the lungs using a low-dose technique per lung cancer screening protocol. Reconstruction images were obtained using the axial data. Exam was performed using dose reduction technique. CLINICAL HISTORY: ENCOUNTER FOR SCREENING, NICOTINE DEPENDENCE, current smoker 1ppd x45 years COMPARISON: 05/28/2023 FINDINGS: CTDLvol: 2.90 DLP: 105.51 Current smoker 45 pack year history Lungs: There is biapical pleural scarring with nodularity which is unchanged. 3 mm subpleural left lower lobe nodule on series 4, image 35 is stable. Previously seen 4 mm nodule along the left major fissure seen on series 4, image 45 is now calcified. There is a stable 4 mm right lower lobe nodule on series 4, image 59. No new mass or nodule is identified. There is no consolidation. Lymph nodes: No thoracic lymphadenopathy. Mediastinum: Heart size is normal. Pleura/pericardium: No pleural or pericardial effusion. Other: No acute abnormality in the upper abdomen. IMPRESSION: Previously seen left lung nodule measuring 4 mm is now calcified. Stable 4 mm nodule in the right lower lobe. Lung RADS: 2 Recommendation: 1 year follow-up. Reviewed, Interpreted and Dictated by Nuvia Dawn MD Transcribed by Lianet Her Authenticated and [facility]
== END 2025-01-30 23:59 ==
PROVIDERS: PCP Family Medicine; Visit Provider Family Medicine
DX: Z12.2 Encounter for screening for malignant neoplasm of respiratory organs (principal); F17.210 Nicotine dependence, cigarettes, uncomplicated; R91.8 Other nonspecific abnormal finding of lung field; J98.4 Other disorders of lung
CPT/HCPCS: 71271

== ENCOUNTER 2025-02-10 07:58 | Outpatient (CLI) | payer BC, SELFPAY ==
--- OUTSIDE RECORDS SUMMARY | 2023-11-11 10:30 | XMS_ITS ---
Author Organization [facility] Address [address] [facility] [address] [place] [id number] Care Team Providers Care Department Specialist Name Role Phone Ramana Hager Primary Care Provider Allergies No Known Allergies Results Component Value Reference Range Notes X ray : Hip, right Reviewed date:11/17/2023 01:22:02 PM Interpretation:Negative Performing Lab: Notes/Report: Negative REASON FOR VISIT 6 Month Check Up, Needs labs Medications Medication SIG (Take, Route, Fr equency, Duration) Notes Start Date End Date Status Savella 50 MG 1 tab(s) orally twice a day Active Sulindac 200 MG 1 tab(s) orally 2 times a day Active Vital Signs Blood pressure systolic 120 mm Hg 11/11/19 24 Blood pressure diastolic 80 mm Hg 024 Heart Rate 82 /min 11/11/2023 Height 69 in 11/11/2023 Weight 171.6 lbs 11/11/2023 BMI 25.34 kg/m2 11/11/2023 Encounters Encounter Location Date Provider Diagnosis Barry [address] [facility] [address] [place] [id number] 11/11/2023 Ramana Hager Fibromyalgia M79.7 ; Abnormal mammogram R92.8 ; Fibrocystic breast disease, unspecified laterality N60.19 and Right hip pain M25.551 Assessments Encounter Date Diagnosis (ICD Code) Assessment Notes Treatment Notes Treatment Clinical Notes Section Notes 11/11/2023 Fibromyalgia (ICD-10 - M79.7) continue current therapy 11/11/2023 Abnormal mammogram (ICD-10 - R92.8) 11/11/2023 Fibrocystic breast disease, unspecified laterality (ICD-10 - N60.19) 11/11/2023 Right hip pain (ICD-10 - M25.551) Plan Of Treatment Treatment Notes Assessment Notes Fibromyalgia continue current the rapy Next Appt Details Follow Up: 2 Months, Reason: Provider Name:Ramana Leo er, 04/23/2025 04:00:00 PM, [address], [address], [place], [place], [id number], Progress Notes * Taran CASANOVAOB:1965 (59 yo F)Acc No.[id number]:11/11/2023 Progress Notes Patient: Madyson CARRILLO Provider: Ramana Hager M.D. :1965 A ge:58 Y S ex:Female Date:11/11/2023 Address:[address] [place] [address], [facility] Subjective: * Chief Complaints: * 1 . 6 Month Check Up. 2. Needs labs. * HPI: P ain: The patient is here for a check up on Fibromyalgia. Pt states the fibromyalgia is about the same. Pt states she is needing refills sent to [facility] in [place]. Pt states she started about 2 months ago with right hip pain. Pt states the hip feels like it will give away at time. Pt rates the pain a 6/10 some days worse. * ROS: D ERMATOLOGY: no R nic. n o H shahnaz. G ASTROENTEROLOGY: no N ausea. n o V omiting. n o D iarrhea.? U ROLOGY: no D ifficulty urinating. n o B lood in urine. * Medical History: H epatitis A Vaccine x2 Spring 2018, COVID 19 Vaccine, Moderna May,June 2020. * Surgical History: c -section, twin girls 1988, appendectomy 1973, Hysterectomy 2004. * Family History: F ather: , diagnosed with Stroke. M other: , diagnosed with Hypertension.?1 sister(s) . 2 daughter(s) - healthy. . Sister-passed from cancer and heart issues. * Social History: C URRENT TOBACCO USE: Yes S moking Status: P atient does smoke, p acks per day:?1. C affeine: yes, frequency:daily. Home smoke detector use: yes. Marital Status: . Recreational drug use: no. Alcohol: No. Sexually active: yes. * Medications: T aking Savella 50 MG Tablet 1 tab(s) orally twice a day , Taking Sulindac 200 MG Tablet 1 tab(s) orally 2 times a day , Medication List reviewed and reconciled with the patient * Allergies: N .K.D.A. Objective: * Vitals: W t:171.6, Temp:98.0, BP:120/80, HR:82, Nurse:ROBE, Ht: 69, BMI:25.34. * Examination: G eneral Examination: General Appearance: N AD. H EENT: u nremarkable.?Oral cavity: n o lesions, mucosa moist and WNL, no erythema. N nasim: s upple, no lymphadenopathy. C hest: n ormal shape and expansion. H eart: R SR. L ungs: c lear to auscultation. A bdomen: soft and nontender. N eurologic Exam: I ntact, gait normal. S kin: n ormal, no rash. P eripheral pulses: n ormal . B ack: normal, mild dorsal kyphosis. E xtremities: n o leg edema, full ROM of the right hip without pain, nontender at trochanter. Assessment: * Assessment: 1. F ibromyalgia - M79.7 (Primary) 2 . A bnormal mammogram - R92.8 ? 3 . F ibrocystic breast disease, unspecified laterality - N60.19 4 .?Right hip pain - M25.551 Plan: * Treatment: 2. R ight hip pain I maging: X ray : Hip, right (Performed Date - 11/15/2023) N egative * Follow Up: 2 Months * Images: Billing Information: * Visit Code: 97742 Office Visit, Est Pt., Level 4. * Procedure Codes: * Electronic signature of Ramana Hager MD on 02/10/2025 at 08:01 AM EST Sign off status: Pending * Provider: Ramana Hager M.D. Date: 0 11/11/2023 Generated for Tammiei ankit/Jase/eTransmitting on: 1 04/13/2024 08:01 AM EST History and Physical Notes * Examination Category Sub-Category Detail Notes Category Not es General Examination HEENT: unremarkable Heart: RSR Lungs: clear to auscultatio n Abdomen: soft and nontender Extremities: no leg edema, full R OM of the right hip without pain, nontender at trochanter General Appearance: NAD Skin: normal, no rash Neurologic Exam: Intact, gait normal Neck: supple, no lymphaden opathy Oral cavity: no lesions, mucosa m oist and WNL, no erythema Peripheral pulses: normal Back: normal, mild dorsal kyphosis Chest: normal shape and exp ansion
--- OUTSIDE RECORDS SUMMARY | 2024-01-13 10:30 | XMS_ITS ---
Author Organization [facility] Address [address] [facility] [address] [place] [id number] Care Team Providers Care Lip And Gate Builder Name Role Phone Ramana Hager Primary Care Provider Allergies No Known Allergies Results Component Value Reference Range Notes P-Comprehensive Metabolic Pa kristi (CMP) Reviewed date:01/21/2024 02:14:52 PM Interpretation:alk phos 135 Performing Lab: Notes/Report: CLIA: [id number] Jacky Machado MD, Arterial Embalmer [address] [facility] , [address], [place] [address] Test performed by [employer], [facility] Sodium 141 135-145 mmol/L Potassium 4.7 3.5-5.3 mmol/L Chloride 104 97-108 mmol/L CO2 24 22-32 mmol/L Glucose 92 65-99 mg/dL BUN 20 6-20 mg/dL Creatinine 0.66 0.50-1.00 mg/dL Calcium 9.7 8.6-10.4 mg/dL eGFR by Creatinine 103 >59 mL/min/1.73m2 Protein 7.1 6.0-8.3 g/dL Albumin 4.8 3.5-5.3 g/dL Alkaline Phosphatase 135 35-121 IU/L ALT (SGPT) 17 <5-47 IU/L AST (SGOT) 17 <5-40 IU/L Bilirubin, Total 0.2 <0.2-1.2 mg/dL A/G Ratio 2.1 1.1-2.5 REASON FOR VISIT 2 month f/u, Needs labs & flu vaccine Medications Medication SIG (Take, Route, Fr equency, Duration) Notes Start Date End Date Status Savella 50 MG Take 1 tablet by deniz th twice daily; Duration: 90 Active Sulindac 200 MG 1 tab(s) orally 2 ti mes a day; Duration: 90 days Active Vital Signs Blood pressure systolic 130 mm Hg 01/13/20 24 Blood pressure diastolic 84 mm Hg 024 Heart Rate 80 /min 01/13/2024 Height 69 in 01/13/2024 Weight 174.8 lbs 01/13/2024 BMI 25.81 kg/m2 01/13/2024 Encounters Encounter Location Date Provider Diagnosis [facility] [address] [facility] [address] [facility] [address] [place] [id number] 01/13/2024 Ramana Hager Fibromyalgia M79.7 a nd Hyperlipidemia, unspecified hyperlipidemia type E78.5 Assessments Encounter Date Diagnosis (ICD Code) Assessment Notes Treatment Notes Treatment Clinical Notes Section Notes 01/13/2024 Fibromyalgia (ICD-10 - M79.7) 01/13/2024 Hyperlipidemia, unspecified hyperlipidemia type (ICD-10 - E78.5) Plan Of Treatment Medication Medication Name Sig Start Date Stop Date Notes Savella 50 MG Take 1 tablet by deniz th twice daily; Duration: 90 Sulindac 200 MG 1 tab(s) orally 2 ti mes a day; Duration: 90 days Next Appt Details Follow Up: 5 M, Reason: Provider Name:Ramana Leo er, 04/23/2025 04:00:00 PM, [address] [facility], [address], [place], [place], [id number], Progress Notes * Taran CASANOVAOB:1965 (59 yo F)Acc No.[id number]:01/13/2024 Progress Notes Patient: Madyson CARRILLO Provider: Ramana Hager M.D. :1965 A ge:58 Y S ex:Female Date:01/13/2024 Address:[address] [place] [address], [id number] Subjective: * Chief Complaints: * 1 . 2 month f/u. 2. Needs labs & flu vaccine. * HPI: P ain: The pt is here for a check up on the Fibromyalgia. Pt states she doing about the same. Pt rates her pain about 5/10 today. Pt states she is needing refills sent to [facility] in [place]. * ROS: D ERMATOLOGY: no R nic. [...] Sexually active: yes. * Medications: T aking Sulindac 200 MG Tablet 1 tab(s) orally 2 times a day , Taking Savella 50 MG Tablet Take 1 tablet by mouth twice daily , Medication List reviewed and reconciled with the patient * Allergies: N .K.D.A. Objective: * Vitals: W t:174.8, Temp:98.2, BP:130/84, HR:80, Nurse:ROBE, Ht: 69, BMI:25.81. * Examination: G eneral Examination: General Appearance: [...] F ibromyalgia - M79.7 (Primary) 2 . H yperlipidemia, unspecified hyperlipidemia type - E78.5 Plan: * Treatment: 2. H yperlipidemia, unspecified hyperlipidemia type L AB: P-Comprehensive Metabolic Panel (CMP) (Collection Date & Time - 01/13/2024 03:32 PM) a lk phos 135 Value Reference Range A /G Ratio 2.1 1.1-2.5 - * A lbumin 4.8 3.5-5.3 - g/dL * A lkaline Phosphatase 135 H 35-121 - IU/L * A LT (SGPT) 17 <5-47 - IU/L * A ST (SGOT) 17 <5-40 - IU/L * B ilirubin, Total 0.2 <0.2-1.2 - mg/dL * B UN 20 6-20 - mg/dL * C alcium 9.7 8.6-10.4 - mg/dL * C hloride 104 97-108 - mmol/L * C O2 24 22-32 - mmol/L * C reatinine 0.66 0.50-1.00 - mg/dL * G lucose 92 65-99 - mg/dL * P otassium 4.7 3.5-5.3 - mmol/L * S odium 141 135-145 - mmol/L * P rotein 7.1 6.0-8.3 - g/dL * e GFR by Creatinine 103 >59 - mL/min/1.73m2 * Nicolle Pierce 01/21/2024 2:1 4:10 PM > see telephone encounter * Follow Up: 5 M * Images: Billing Information: * Visit Code: 98984 Office Visit, Est Pt., Level 4. * Procedure Codes: * Electronic signature of Ramana Hager MD on 02/10/2025 at 08:00 AM EST Sign off status: Pending * Provider: Ramana Hager M.D. Date: 03/14/2023 Generated for Reynaldo pham/Jase/eTjoannasmitting on: 04/13/2024 08:00 AM EST History and Physical Notes * [...]
--- OUTSIDE RECORDS SUMMARY | 2024-08-28 05:00 | XMS_ITS ---
Author Organization [facility] Address [address] [facility] [address] [place] [id number] Care Team Providers Care Chief Cardiopulmonary Technologist Name Role Phone Ramana Hager Primary Care Provider [phone] Allergies No Known Allergies REASON FOR VISIT 6 month f/u Medications Medication SIG (Take, Route, Fr equency, Duration) Notes Start Date End Date Status Sulindac 200 MG 1 tab(s) orally 2 ti mes a day; Duration: 90 days Active Savella 50 MG Take 1 tablet by deniz th twice daily; Duration: 90 days Active Terbinafine HCl 250 MG 1 tablet Orally O nce a day; Duration: 45 days 08/28/2024 Active Vital Signs Blood pressure systolic 122 mm Hg 08/29/19 25 Blood pressure diastolic 78 mm Hg 025 Heart Rate 73 /min 08/28/2024 Height 69 in 08/28/2024 Weight 164 lbs 08/28/2024 BMI 24.22 kg/m2 08/28/2024 Encounters Encounter Location Date Provider Diagnosis [place] [address] [facility] [address] [place] [id number] 08/28/2024 Ramana Hager Fibromyalgia M79.7 ; Hyperlipidemia, unspecified hyperlipidemia type E78.5 ; Onychomycosis B35.1 and BMI 24.0-24.9, adult Z68.24 Assessments Encounter Date Diagnosis (ICD Code) Assessment Notes Treatment Notes Treatment Clinical Notes Section Notes 08/28/2024 Fibromyalgia (ICD-10 - M79.7) 08/28/2024 Hyperlipidemia, unspecified hyperlipidemia type (ICD-10 - E78.5) 08/28/2024 Onychomycosis (ICD-10 - B35.1) 08/28/2024 BMI 24.0-24.9, adult (ICD-10 - Z68.24) Plan Of Treatment Medication Medication Name Sig Start Date Stop Date Notes Sulindac 200 MG 1 tab(s) orally 2 ti mes a day; Duration: 90 days Savella 50 MG Take 1 tablet by deniz th twice daily; Duration: 90 days Terbinafine HCl 250 MG 1 tablet Orally O nce a day; Duration: 45 days 08/28/2024 Next Appt Details Follow Up: 6 Weeks, Reason: Provider Name:Ramana Leo er, 04/23/2025 04:00:00 PM, [address] [facility] [address], [address], [place], [place], [id number], Progress Notes * Taran CASANOVAOB:1965 (59 yo F)Acc No.[id number]:08/28/2024 Progress Notes Patient: Madyson CARRILLO Provider: Ramana Hager M.D. :1965 A ge:59 Y S ex:Female Date:08/28/2024 Address:[address] [place] [address], [facility] Subjective: * Chief Complaints: * 1 . 6 month f/u. * HPI: P ain: Pt here for refills to [place] and f/u on pain. Pt states pain been doing.Pt states no other concerns. Pt is fasting. * ROS: D ERMATOLOGY: no R nic. n o H shahnaz. G ASTROENTEROLOGY: no N ausea. n o V omiting. n o D iarrhea.? U ROLOGY: no D ifficulty urinating. n o B lood in urine. * Medical History: H epatitis A Vaccine x2 Spring 2018, COVID 19 Vaccine, Moderna May, June 2020. * Surgical History: c -section, twin [...] Allergies: N .K.D.A. Objective: * Vitals: W t: 164, Temp: 98.1, BP: 122/78, HR: 73, Nurse: salvatore, Ht: 69, BMI:24.22. * Examination: G eneral Examination: General Appearance: [...] kyphosis. E xtremities: n o leg edema, great toes bilaterally with darkening c/w recurrent onychomycosis. Assessment: * Assessment: 1. F ibromyalgia - M79.7 (Primary) 2 . H yperlipidemia, unspecified hyperlipidemia type - E78.5 3 . O nychomycosis - B35.1 4 . B WV 24.0-24.9, adult - Z68.24 Plan: * Treatment: 2. O nychomycosis Start Terbinafine HCl Tablet, 250 MG, 1 tablet, Orally, Once a day, 45 days, 45 Tablet, Refills 1.? * Procedure Codes: G 8420 BMI<30 AND >=22 CALC & DOCU, G8755 BP SCR PRFRM RCMDD DEFIND SCR INTVL, G8752 MOST RECENT SYSTOLIC BP < 140MM HG, G8754 MOST RECENT DIASTOLIC BP < 90MM HG * Follow Up: 6 Weeks * Images: Billing Information: * Visit Code: 77211 Office Visit, Est Pt., Level 4. * Procedure Codes: G8420 BMI<30 AND >=22 CALC & DOCU. G8783 BP SCR PRFRM RCMDD DEFIND SCR INTVL. G8752 MOST RECENT SYSTOLIC BP < 140MM HG. G8754 MOST RECENT DIASTOLIC BP < 90MM HG. * Electronic signature of Ramana Hager MD on 02/10/2025 at 08:01 AM EST Sign off status: Pending * Provider: Ramana Hager M.D. Date: 0 08/28/2024 Generated for Reynaldo pham/Jase/Gloriaitting on: 04/13/2024 08:01 AM EST History and Physical Notes * Examination Category Sub-Category Detail Notes Category Not es General Examination HEENT: unremarkable Heart: RSR Lungs: clear to auscultatio n Abdomen: soft and nontender Extremities: no leg edema, great toes bilaterally with darkening c/w recurrent onychomycosis General Appearance: NAD Skin: normal, no rash Neurologic Exam: Intact, gait normal Neck: supple, no lymphaden opathy Oral cavity: no lesions, mucosa m oist and WNL, no erythema Peripheral pulses: normal Back: normal, mild dorsal kyphosis Chest: normal shape and exp ansion
--- OUTSIDE RECORDS SUMMARY | 2024-10-09 04:30 | XMS_ITS ---
Author Organization [facility] Address [address] [facility] [address] [place] [id number] Care Team Providers Care Chronic Care Nurse Name Role Phone Ramana Hager Primary Care Provider Allergies No Known Allergies Results Component Value Reference Range Notes P-Comprehensive Metabolic Pa kristi (CMP) Reviewed date:10/11/2024 01:19:26 PM Interpretation:alk phos 152 Performing Lab: Notes/Report: Test performed by [employer] [address] [place] [address] , [address], [place] [address] Jacky Machado MD, Compensation Director CLIA: [id number] Sodium 141 135-145 mmol/L Potassium 5.0 3.5-5.3 mmol/L Chloride 105 97-108 mmol/L CO2 25 20-32 mmol/L Glucose 84 65-99 mg/dL BUN 18 6-20 mg/dL Creatinine 0.66 0.50-1.00 mg/dL Calcium 10.0 8.6-10.4 mg/dL eGFR by Creatinine 102 >59 mL/min/1.73m2 Protein 6.8 6.0-8.3 g/dL Albumin 4.6 3.5-5.3 g/dL Alkaline Phosphatase 152 35-121 IU/L ALT (SGPT) 9 <5-47 IU/L AST (SGOT) 16 <5-40 IU/L Bilirubin, Total 0.3 <0.2-1.2 mg/dL A/G Ratio 2.1 1.1-2.5 REASON FOR VISIT 6 weeks Medications Medication SIG (Take, Route, Fr equency, Duration) Notes Start Date End Date Status Terbinafine HCl 250 MG 1 tablet Orally O nce a day; Duration: 45 days 08/28/2024 Active Savella 50 MG Take 1 tablet by deniz twice daily; Duration: 90 days Active Sulindac 200 MG 1 tab(s) orally 2 ti mes a day; Duration: 90 days Active Problems Problem Type SNOMED Code ICD Code Onset Dates Problem Status W/U Status Risk Notes Problem Essential hypertension (41639507) Essential hypertension (I10) Active confirmed Vital Signs Blood pressure systolic 140 mm Hg 10/10/19 25 Blood pressure diastolic 90 mm Hg 025 Heart Rate 90 /min 10/09/2024 Height 69 in 10/09/2024 Weight 162.4 lbs 10/09/2024 BMI 23.98 kg/m2 10/09/2024 Encounters Encounter Location Date Provider Diagnosis [facility] 36 [facility] [address] [place] [id number] 10/09/2024 Ramana Hager Onychomycosis B35.1 ; Essential hypertension I10 and BMI 23.0-23.9, adult Z68.23 Assessments Encounter Date Diagnosis (ICD Code) Assessment Notes Treatment Notes Treatment Clinical Notes Section Notes 10/09/2024 Onychomycosis (ICD-10 - B35.1) 10/09/2024 Essential hypertension (ICD-10 - I10) 10/09/2024 BMI 23.0-23.9, adult (ICD-10 - Z68.23) Plan Of Treatment Next Appt Details Follow Up: 2 Months, Reason: Provider Name:Ramana Leo er, 04/23/2025 04:00:00 PM, [address] [facility] 36 [facility], [address], [place], [id number], Progress Notes * Taran CASANOVAOB:1965 (59 yo F)Acc No.[id number]:10/09/2024 Progress Notes Patient: Madyson CARRILLO Provider: Ramana Hager M.D. :1965 A ge:59 Y S ex:Female Date:10/09/2024 Address:[address] [place] [address], [facility] Subjective: * Chief Complaints: * 1 . 6 weeks. * HPI: H PI: 59 year old female presents with c/o Patient is here today for?Pt is here today for a 6 week f/u on toe nail fungus she had. Pt sts she does needs labs done today, but sts she is not fasting. * ROS: D ERMATOLOGY: no R [...] Sexually active: yes. * Medications: T aking Terbinafine HCl 250 MG Tablet 1 tablet Orally Once a day , Taking Savella 50 MG Tablet Take 1 tablet by mouth twice daily , Taking Sulindac 200 MG Tablet 1 tab(s) orally 2 times a day , Medication List reviewed and reconciled with the patient * Allergies: N .K.D.A. Objective: * Vitals: W t: 162.4, Temp: 98.4, BP: 140/90, HR: 90, Nurse: mmh, Ht: 69, BMI:23.98. * Examination: G eneral Examination: General Appearance: [...] leg edema, great toes bilaterally with darkening with evidence of improvement. Assessment: * Assessment: 1. O nychomycosis - B35.1 (Primary) 2 . E ssential hypertension - I10 ? 3 . B SC 23.0-23.9, adult - Z68.23 Plan: * Treatment: Value Reference Range A /G Ratio 2.1 1.1-2.5 - * A lbumin 4.6 3.5-5.3 - g/dL * A lkaline Phosphatase 152 H 35-121 - IU/L * A LT (SGPT) 9 <5-47 - IU/L * A ST (SGOT) 16 <5-40 - IU/L * B ilirubin, Total 0.3 <0.2-1.2 - mg/dL * B UN 18 6-20 - mg/dL * C alcium 10.0 8.6-10.4 - mg/dL * C hloride 105 97-108 - mmol/L * C O2 25 20-32 - mmol/L * C reatinine 0.66 0.50-1.00 - mg/dL * G lucose 84 65-99 - mg/dL * P otassium 5.0 3.5-5.3 - mmol/L * S odium 141 135-145 - mmol/L * P rotein 6.8 6.0-8.3 - g/dL * e GFR by Creatinine 102 >59 - mL/min/1.73m2 * Lea Akbar 10/11/2024 0 1:19:20 PM EDT > See phone encounter * Follow Up: 2 Months * Images: Billing Information: * Visit Code: 64277 Office Visit, Est Pt., Level 3. * Procedure Codes: * Electronic signature of Ramana Hager MD on 02/10/2025 at 08:01 AM EST Sign off status: Pending * Provider: Ramana Hager M.D. Date: 0 10/09/2024 Generated for Reynaldo hpam/Jase/Gloriaitting on: 1 04/13/2024 08:01 AM EST History and Physical Notes * HPI (History of Present Illness) Category Sub-Category Detail Notes Category Not es HPI Patient is here today for Pt is here today for a 6 week f/u on toe nail fungus she had. Pt sts she does needs labs done today, but sts she is not fasting Examination Category Sub-Category Detail Notes Category Not es General Examination HEENT: unremarkable Heart: RSR Lungs: clear to auscultatio n Abdomen: soft and nontender Extremities: no leg edema, great toes bilaterally with darkening with evidence of improvement General Appearance: NAD Skin: normal, no rash Neurologic Exam: Intact, gait normal Neck: supple, no lymphaden opathy Oral cavity: no lesions, mucosa m oist and WNL, no erythema Peripheral pulses: normal Back: normal, mild dorsal kyphosis Chest: normal shape and exp ansion
--- OUTSIDE RECORDS SUMMARY | 2025-01-22 11:00 | XMS_ITS ---
Author [facility] Address [address] [facility] [address] [place] [id number] Care Team Providers Care Director Clinical Information Services Name Role Phone Ramana Hager Primary Care Provider Allergies No Known Allergies Results Component Value Reference Range Notes P-Basic Metabolic Panel (BMP ) Reviewed date:02/02/2025 03:12:38 PM Interpretation:Normal Performing Lab: Notes/Report: CLIA: [id number] Homa Gambino MD, PhD, [facility], Country Director [address] [place] [address] , [address], [place] [address] Test performed by [employer], [facility] Sodium 142 135-145 mmol/L Potassium 4.2 3.5-5.3 mmol/L Chloride 107 97-108 mmol/L CO2 25 20-32 mmol/L Glucose 100 65-99 mg/dL BUN 18 6-20 mg/dL Creatinine 0.71 0.50-1.00 mg/dL Calcium 9.8 8.6-10.4 mg/dL eGFR by Creatinine 99 >59 mL/min/1.73m2 REASON FOR VISIT 2 months, Needs low dose chest CT & colon cancer screening Medications Medication SIG (Take, Route, Frequency, Duration) Notes Start Date End Date Status hydroCHLOROthiazide 12.5 MG 1 tablet in the morning Orally Once a day; Duration: 30 days 01/22/2025 Active Savella 50 MG Take 1 tablet by deniz th twice daily; Duration: 90 days Active Sulindac 200 MG 1 tab(s) orally 2 ti mes a day; Duration: 90 days Active Vital Signs Blood pressure systolic 122 mm Hg 01/23/20 25 Blood pressure diastolic 80 mm Hg 025 Heart Rate 86 /min 01/22/2025 Height 69 in 01/22/2025 Weight 166 lbs 01/22/2025 BMI 24.51 kg/m2 01/22/2025 Encounters Encounter Location Date Provider Diagnosis Barry [address] [facility] 36 [facility] [address] [place] [id number] 01/22/2025 Ramana Hager Essential hypertensi on I10 and Tobacco dependence due to cigarettes F17.210 Assessments Encounter Date Diagnosis (ICD Code) Assessment Notes Treatment Notes Treatment Clinical Notes Section Notes 01/22/2025 Essential hypertension (ICD-10 - I10) 01/22/2025 Tobacco dependence due to cigarettes (ICD-10 - F17.210) 01/22/2025 Other NEEDS LIPID PROFILE Plan Of Treatment Medication Medication Name Sig Start Date Stop Date Notes hydroCHLOROthiazide 12.5 MG 1 tablet in the morning Orally Once a day; Duration: 30 days 01/22/2025 Treatment Notes Assessment Notes Other NEEDS LIPID PROFILE Next Appt Details Follow Up: 3 Months, Reason: Provider Name:Ramana Leo er, 04/23/2025 04:00:00 PM, [address] [facility] 36 [facility], [address], [place], [id number], Progress Notes * JOSE EmmettGuyOB:1965 (59 yo F)Acc No.[id number]:01/22/2025 Progress Notes Patient: Madyosn CARRILLO Provider: Ramana Hager M.D. :1965 A ge:59 Y S ex:Female Date:01/22/2025 Address:[address] [place] [address], [facility] Subjective: * Chief Complaints: * 1 . 2 months. 2. Needs low dose chest CT & colon cancer screening. * HPI: C ardiology: Pt here 2 months checkup on Hypertension and Hyperlipidemia. Pt is not fasting. Pt states she has no new corners today. * ROS: C ONSTITUTIONAL: Positive for A nother physician seen since last visit? no? C hange in medication since last visit? n o A re you taking antibiotics?no A re you taking steroids?no. D ERMATOLOGY: no R nic. n o [...] Medications: T aking Savella 50 MG Tablet Take 1 tablet by mouth twice daily , Taking Sulindac 200 MG Tablet 1 tab(s) orally 2 times a day , Discontinued Terbinafine HCl 250 MG Tablet 1 tablet Orally Once a day , Medication List reviewed and reconciled with the patient * Allergies: N .K.D.A. Objective: * Vitals: W t: 166, Temp: 98.2, BP: 122/80, HR: 86, Nurse: pe, Ht: 69, Repeat BP: 140/82, BMI:24.51. * Examination: G eneral Examination: General Appearance: [...] evidence of improvement. Assessment: * Assessment: 1. E ssential hypertension - I10 (Primary) 2 . T obacco dependence due to cigarettes - F17.210 Plan: * Treatment: Value Reference Range B UN 18 6-20 - mg/dL * C alcium 9.8 8.6-10.4 - mg/dL * C hloride 107 97-108 - mmol/L * C O2 25 20-32 - mmol/L * C reatinine 0.71 0.50-1.00 - mg/dL * G lucose 100 H 65-99 - mg/dL * P otassium 4.2 3.5-5.3 - mmol/L * S odium 142 135-145 - mmol/L * e GFR by Creatinine 99 >59 - mL/min/1.73m2 * Jessica Sue 02/02/2025 03 :12:28 PM EST > Left voicemail informing of normal lab results 2.?Others? Notes: NEEDS LIPID PROFILE?? * Procedure Codes: 3 6415 VENIPUNCT, ROUTINE*, 3074F SYST BP LT 130 MM HG, 3079F DIAST BP 80-89 MM HG * Follow Up: 3 Months * Images: Billing Information: * Visit Code: 82027 Office Visit, Est Pt., Level 4. * Procedure Codes: 15066 VENIPUNCT, ROUTINE*. 3074F SYST BP LT 130 MM HG. 3079F DIAST BP 80-89 MM HG. * Electronic signature of Ramana Hager MD on 02/10/2025 at 08:00 AM EST Sign off status: Pending * Provider: Ramana Hager M.D. Date: 03/24/2024 Generated for Reynaldo pham/Jase/Deepasmitting on: 04/13/2024 08:00 AM EST History and [...]
--- OUTSIDE RECORDS SUMMARY | 2025-02-03 07:10 | XMS_ITS | Clinical Summary ---
Author Organization [facility] Address [address] [phone] Care Team Providers Care Parcel Post Carrier Name Role Phone Unavailable Primary Care Provider [...] [facility]-Zoster Vaccines (2 of 3) 06/03/2020 04/08/2020 [id number] Vaccine (4 - 2024- season) 2024 01/22/2021, [...] this topic Insurance [address] [id number] [place]
--- OUTSIDE RECORDS SUMMARY | 2025-02-10 08:01 | XMS_ITS | Clinical Summary ---
Author Organization [facility] Address [address] [id number] Care Team Providers Care Security Researcher Name Role Phone Unavailable Primary Care Provider [...] [facility]-Zoster Vaccines (2 of 3) 06/03/2020 04/08/2020 [id number] Vaccine (4 - 2024- season) 2024 01/22/2021, [...] this topic Insurance [address] [id number] [place]
--- OUTSIDE RECORDS SUMMARY | 2025-02-10 08:01 | XMS_ITS | Patient Health Record ---
Author Organization [facility] Address [address] [place] [phone] Care Team Providers Care Road Repairer Name Role Phone Ramana Hager Primary Care Provider [phone] Allergies No Known Allergies Results Component Value Reference Range Notes P-Basic Metabolic Panel (BMP ) Reviewed date:02/02/2025 03:12:38 PM Interpretation:Normal Performing Lab: Notes/Report: Test performed by [facility] [employer] [address] , [address], [place] [address] Homa Gambino MD, PhD, FCAP, Group Leader CLIA: [id number] Sodium 142 135-145 mmol/L Potassium 4.2 3.5-5.3 mmol/L Chloride 107 97-108 mmol/L CO2 25 20-32 mmol/L Glucose 100 65-99 mg/dL BUN 18 6-20 mg/dL Creatinine 0.71 0.50-1.00 mg/dL Calcium 9.8 8.6-10.4 mg/dL eGFR by Creatinine 99 >59 mL/min/1.73m2 P-Comprehensive Metabolic Pa kristi (CMP) Reviewed date:10/11/2024 01:19:26 PM Interpretation:alk phos 152 Performing Lab: Notes/Report: Test performed by [facility] [address] [place], [place] [address] [address] , [address], [place] [address] Jacky Machado MD, Group Leader CLIA: [id number] Sodium 141 135-145 mmol/L Potassium 5.0 3.5-5.3 [...] 0.3 <0.2-1.2 mg/dL A/G Ratio 2.1 1.1-2.5 Mammogram Reviewed date:08/18/2024 02:00:18 PM Interpretation:Negative Performing Lab: Notes/Report: Negative result neg CT Scan : Chest, low dose Reviewed date:01/31/2025 02:54:05 PM Interpretation: Performing Lab: Notes/Report: Reason For Referral No Information Medications Medication SIG (Take, Route, Frequency, Duration) Notes Start Date End Date Status hydroCHLOROthiazide 12.5 MG 1 tablet in the morning Orally Once a day; Duration: 30 days 01/22/2025 Active Savella 50 MG Take 1 tablet by deniz th twice daily; Duration: 90 days Active Sulindac 200 MG 1 tab(s) orally 2 ti mes a day; Duration: 90 days Active Immunizations Vaccine Route Administration [...] W/U Status Risk Notes Problem Essential hypertension (08503604) Essential hypertension (I10) Active confirmed Problem Abnormal mammogram (650155670) Abnormal mammogram (R92.8) Active confirmed Problem Fibromyalgia (661117541) Fibromyalgia (M79.7) Active confirmed Problem Onychomycosis (723740977) Onychomycosis (B35.1) Active confirmed Problem Hyperlipidaemia (21792120) Hyperlipidemia, unspecified hyperlipidemia type (E78.5) Active confirmed Problem Joint pain (03772693) Arthralgia, unspecified joint (M25.50) Active confirmed Problem Fibrocystic breast changes (03069225) Fibrocystic breast disease, unspecified laterality (N60.19) Active confirmed Problem Tobacco user (545477139) Tobacco dependence due to cigarettes (F17.210) Active confirmed Vital Signs Heart Rate 86 /min 01/22/2025 Blood pressure diastolic 80 mm Hg 01/22/2025 Height 69 in 01/22/2025 Blood pressure systolic 122 mm Hg 01/22/2025 Weight 166 lbs 01/22/2025 BMI 24.51 kg/m2 01/22/2025 Encounters Encounter Location Date Provider Diagnosis [facility] [address] [place], [place] [phone] 08/28/2024 Ramana Hager Fibromyalgia M79.7 ; Hyperlipidemia, unspecified hyperlipidemia type E78.5 ; Onychomycosis B35.1 and BMI 24.0-24.9, adult Z68.24 [facility] [address] [facility] [address] [place], [place] [phone] 10/09/2024 Ramana Hager Onychomycosis B35.1 ; Essential hypertension I10 and BMI 23.0-23.9, adult Z68.23 [facility] [address] [facility] [address] [place], [place] [id number] 01/22/2025 Ramana Hager Essential hypertensi on I10 and Tobacco dependence due to cigarettes F17.210 [facility] [address] [facility] [address] [place], [place] [phone] 09/12/2024 Ramana Hager [facility] [address] [facility] [address] [place] [phone] 10/11/2024 Ramana Hager [facility] [address] [facility] [address] [place], [place] [id number] 10/23/2024 Ramana Hager Encounter for screen ing for lung cancer Z12.2 [facility] [address] [facility] [address] [place], [place] [phone] 11/14/2024 Ramana Hager Onychomycosis B35.1 [facility] [facility] [facility] 36 [facility] [address] [place] [phone] 01/31/2025 Ramana Hager Assessments Encounter Date Diagnosis (ICD Code) Assessment Notes Treatment Notes Treatment Clinical Notes Section Notes 08/28/2024 Fibromyalgia (ICD-10 - M79.7) 08/28/2024 Hyperlipidemia, unspecified hyperlipidemia type (ICD-10 - E78.5) 10/23/2024 Encounter for screening for lung cancer (ICD-10 - Z12.2) 11/14/2024 Onychomycosis (ICD-10 - B35.1) 01/22/2025 Essential hypertension (ICD-10 - I10) 10/09/2024 Essential hypertension (ICD-10 - I10) 10/09/2024 Onychomycosis (ICD-10 - B35.1) 10/09/2024 BMI 23.0-23.9, adult (ICD-10 - Z68.23) 01/22/2025 Tobacco dependence due to cigarettes (ICD-10 - F17.210) 08/28/2024 Onychomycosis (ICD-10 - B35.1) 08/28/2024 BMI 24.0-24.9, adult (ICD-10 - Z68.24) 01/22/2025 Other NEEDS LIPID PROFILE Plan Of Treatment Pending Test Test Name Order Date CT Scan : Chest, low dose 10/23/2024 H-Lipid Panel 01/30/2025 Next Appt Details Provider Name:Ramana Leo er, 04/23/2025 04:00:00 PM, 12[address] [facility] 36 [facility], [address], [place], [id number], Insurance Providers Payer Name Payer Address Payer Phone Subscriber Number Group Number Insured Name Patient Relationship to Insured Coverage Start Date Coverage End Date [employer] [address] [place] [address] [id number] Madyson Montenegro Self - patient is the insured Medical (General) History Medical History History ICD Code Hepatitis A Vaccine x2 Spring 2018 COVID 19 Vaccine, Moderna Kate, May 202 1 Surgical History Surgery Date(Month/Year) , twin girls 1988 appendectomy 1973 Hysterectomy 2004
[2025-02-10 10:21] LABS: Cholesterol 177 mg/dl (140-200); HDL Cholesterol 82 mg/dl (40-60); Triglycerides 56 mg/dl (30-150)
== END 2025-02-10 23:59 | disposition home or self-care (01) ==
LOC: LAB 07:58
PROVIDERS: PCP Family Medicine; Visit Provider Family Medicine
DX: E78.5 Hyperlipidemia, unspecified (principal)
CPT/HCPCS: 36415; 80061